=== PATIENT | female | born 1950 | race African-American/Black ===

== ENCOUNTER → 2017-02-26 | Outpatient (CLI) | payer BC ==
[2016-09-18 07:55] VITALS: BP 108/58
[~2017-02-26] MED LIST: AZEL23SP NS; CIME300T PO; MOME13HF IH; OMEP20CA9 PO; RANI150C PO
--- NOTE | 2017-02-26 16:22 | KCIC ---
EXAM: Thyroid sonogram. HISTORY: Thyromegaly. TECHNIQUE: Sonographic imaging of the thyroid was performed. COMPARISON: None. FINDINGS: The right thyroid lobe measures 3.8 x 1.3 x 1.2 cm. The left thyroid lobe measures 4.5 x 1.3 x 1.0 cm. The isthmus measures 1.8). There is a hypoechoic nodule with microcalcification within the inferior right thyroid lobe measuring 2 x 2 by 1 mm. No additional discrete solid or cystic thyroid lesion is seen. There are prominent submandibular lymph nodes, nonspecific and possibly reactive in etiology. IMPRESSION: 1. 2 mm hypoechoic lesion within the right thyroid lobe, likely benign based on size. 2. Normal thyroid size. 3. Prominent submandibular lymph nodes. Electronically signed by: Suzan Odom MD (02/26/2017 4:19 PM)
== END | disposition home or self-care (01) ==
LOC: KCIC US 15:30
PROVIDERS: ATTEND Nurse Practitioner Family
DX: E04.9 Nontoxic goiter, unspecified (principal); E07.9 Disorder of thyroid, unspecified
CPT/HCPCS: 76536

== ENCOUNTER → 2017-10-02 | Outpatient (CLI) | payer BC | END | disposition home or self-care (01) | LOC: PETSC 09:31 | DX: C43.0 Malignant melanoma of lip (principal); K80.20 Calculus of gallbladder without cholecystitis without obstruction; J84.9 Interstitial pulmonary disease, unspecified; J47.9 Bronchiectasis, uncomplicated | CPT/HCPCS: 78816; A9552 ==

== ENCOUNTER → 2017-10-06 | Outpatient (CLI) | payer BC | END | disposition home or self-care (01) | LOC: KCIC MRI 16:02 | DX: C43.0 Malignant melanoma of lip (principal); Z85.820 Personal history of malignant melanoma of skin | CPT/HCPCS: 72146 ==

== ENCOUNTER → 2018-04-13 | Outpatient (CLI) | payer BC | END | disposition home or self-care (01) | LOC: KCIC MAMMO 12:52 | DX: R92.8 Other abnormal and inconclusive findings on diagnostic imaging of breast (principal); I11.0 Hypertensive heart disease with heart failure; I50.9 Heart failure, unspecified; E78.00 Pure hypercholesterolemia, unspecified | CPT/HCPCS: 77066; G0279 ==

== ENCOUNTER → 2019-08-06 | Outpatient (CLI) | payer BC ==
[2016-09-18 07:55] VITALS: BP 108/58
[~2019-08-06] MED LIST changes: +OMEP20CA10 PO; -OMEP20CA9 PO
--- NOTE | 2019-08-06 12:35 | KCIC ---
Bilateral digital screening mammograms with 3-D tomosynthesis: Reason for examination: Routine screening. Comparison is made to previous studies dated 04/13/2018 and 05/03/2015. Bilateral mammograms in CC and oblique projections were obtained with 2-D imaging and 3-D tomosynthesis imaging on a Siemens Inspiration unit and reviewed on the workstation. Interpretation was made with the benefit of CAD. The skin and nipples show no abnormalities. No abnormal axillary lymph nodes are seen. The breast parenchyma shows scattered fatty and fibroglandular density. (Breast density: Category B.) There continues to be a small circumscribed lesion in the retroareolar 3:00 position of the right breast which is stable. There is however a new circumscribed nodule present at the 9:30 B positions of the left breast measuring approximately 5 mm in size. This likely represents a cyst but can be further evaluated with ultrasound. There are no other new dominant masses, suspicious calcifications or architectural distortion. Impression: New 5 mm circumscribed nodule at the 9:30 B position of the left breast. Recommend further evaluation with ultrasound. BI-RAD Category 0: Incomplete. Needs additional imaging evaluation. "Our facility is accredited by the [employer] Mammography [employer]." This patient's information has been entered into a reminder system for the patient to be notified with the results of her examination and a target date for the next mammogram. Electronically signed by: Vi Levine MD (08/06/2019 12:32 PM) [id number]
== END | disposition home or self-care (01) ==
LOC: KCIC MAMMO 11:29
PROVIDERS: ATTEND Nurse Practitioner Family
DX: Z12.31 Encounter for screening mammogram for malignant neoplasm of breast (principal); N63.22 Unspecified lump in the left breast, upper inner quadrant
CPT/HCPCS: 77063; 77067

== ENCOUNTER → 2019-08-19 | Outpatient (CLI) | payer BC ==
[2016-09-18 07:55] VITALS: BP 108/58
--- NOTE | 2019-08-19 13:45 | KCIC ---
Left breast ultrasound: Reason for examination: Abnormal mammogram. Comparison is made to mammographic exam dated 08/06/2019. Left breast ultrasound including the retroareolar and axillary regions of the left breast was performed. In the 9:30 position 5 cm from the nipple, there is a 5.3 mm hypoechoic circumscribed lesion in parallel orientation which has a complicated cystic appearance. In the 9:00 position 5 cm from the nipple, there is an additional small 6.4 mm hypoechoic circumscribed lesion in parallel orientation with a fibrocystic appearance. No suspicious nodules are seen. No abnormal appearing lymph nodes are seen in the left axilla. IMPRESSION: Benign-appearing cystic/fibrocystic nodules at the 9:00 and 9:30 positions. Recommend 6 month follow-up with ultrasound. BI-RADS Category 3: Probably Benign. "Our facility is accredited by the [employer] Mammography [employer]." This patient's information has been entered into a reminder system for the patient to be notified with the results of her examination and a target date for the next mammogram. Electronically signed by: Vi Levine MD (08/19/2019 1:42 PM) [id number]
== END | disposition home or self-care (01) ==
LOC: KCIC US 12:52
PROVIDERS: ATTEND Internal Medicine
DX: N64.89 Other specified disorders of breast (principal)
CPT/HCPCS: 76641

== ENCOUNTER → 2019-10-27 | Outpatient (CLI) | payer BC ==
[2016-09-18 07:55] VITALS: BP 108/58
[~2019-10-27] MED LIST changes: -OMEP20CA10 PO; +OMEP20CA16 PO
--- NOTE | 2019-10-28 13:11 | KCIC ---
EXAM: CT OF THE CHEST WITHOUT CONTRAST. HISTORY: Chronic cough, interstitial lung disease. TECHNIQUE: Computed tomography of the chest was performed without intravenous contrast. One or more of the following individualized dose reduction techniques were utilized for this examination: 1. Automated exposure control. 2. Adjustment of the mA and/or kV according to patient size. 3. Use of iterative reconstruction technique. COMPARISON: 09/14/2015, 10/02/2017. FINDINGS: Images of the upper abdomen reveal a is stable 1 cm hypoattenuating lesion within hepatic segment 2, most likely a benign cyst. Many small gallstones layer dependently. Bone windows reveal no suspicious lesions. Sclerosis of the T10 vertebral body is stable chronically and likely benign. There are no pathologically enlarged mediastinal or axillary lymph nodes. There is no pleural or pericardial effusion. The heart is not enlarged. Interstitial line thickening and groundglass opacity are again noted with a subpleural and basilar predominance. There is traction bronchiectasis and some cystic change in the costophrenic angles. There is a component of groundglass opacity. IMPRESSION: 1. Bilateral basilar and subpleural predominant interstitial lung disease is associated with groundglass opacity and traction bronchiectasis. Correlate for nonspecific interstitial pneumonia and potential clinical causes. 2. Cholelithiasis. Electronically signed by: Hai Aleman MD (10/28/2019 1:08 PM) [facility]
== END | disposition home or self-care (01) ==
LOC: KCIC CT 14:15
PROVIDERS: ATTEND Family Medicine
DX: K80.20 Calculus of gallbladder without cholecystitis without obstruction (principal); J84.9 Interstitial pulmonary disease, unspecified; K76.9 Liver disease, unspecified; J47.9 Bronchiectasis, uncomplicated
CPT/HCPCS: 71250

== ENCOUNTER → 2020-03-27 | Outpatient (CLI) | payer BC ==
[2016-09-18 07:55] VITALS: BP 108/58
[2020-03-27 13:10] LABS: C-REACTIVE PROTEIN 24.7 mg/L (0-3.3)
== END | disposition home or self-care (01) ==
LOC: LAB 12:19
PROVIDERS: ATTEND Internal Medicine Critical Care Medicine
DX: J84.112 Idiopathic pulmonary fibrosis (principal)
CPT/HCPCS: 36415; 82550; 86140; 86235; 86256

== ENCOUNTER → 2021-08-03 | Outpatient (CLI) | payer BC, MEDICARE ==
[2016-09-18 07:55] VITALS: BP 108/58
--- NOTE | 2021-08-03 18:14 | KCIC ---
Bilateral digital screening 2-D and 3-D (digital breast tomosynthesis) mammogram: Reason for examination: Routine screening. Comparison: Mammograms from 08/06/2019 and 04/13/2018. Interpretation was made with the benefit of CAD. FINDINGS: Breast density: Category B. There are scattered areas of fibroglandular density. No suspicious breast mass, malignant appearing calcifications, or architectural distortion is seen. T here are unchanged small oval circumscribed masses in both breasts that are likely due to cysts or fi broadenomas. IMPRESSION: No evidence of malignancy. Assessment: BI-RADS 2. Benign findings. Recommendation: Routine screening mammograms. The patient will receive a letter with the results in the mail. Patient information will be entered i nto the mammography reminder system with a target recall date for the next mammogram. A reminder meek er will be generated. Electronically signed by: Maryellen Moyer MD (08/03/2021 6:11 PM) [email or web address]
== END ==
LOC: KCIC MAMMO 11:04
PROVIDERS: ATTEND Family Medicine
DX: Z12.31 Encounter for screening mammogram for malignant neoplasm of breast (principal)
CPT/HCPCS: 77063; 77067